=== PATIENT | female | born 1955 | race Caucasian/White ===

== ENCOUNTER 2016-09-26 16:37 | Emergency (ER) | payer MEDICAID, OTHER ==
[~2016-09-26] VITALS: Ht 170.2 cm; Wt 91.0 kg
[~2016-09-26 16:37] MED LIST: ALPR.5 PO; AMLO10 PO; ATOR10 PO; CARB0.5D16 EACH EYE; CYCL-36 PO; DETR2TAB PO; ECOT81TA2 PO; FIORIC PO; HCTZ25 PO; LEVA750T PO; LEVO.15 PO; METO25 PO; MOBI7.5T PO; Oxycodone/Acetaminophen PO; PRED10 PO; PROT40TA PO; SPIR25 PO; TAB-TAB PO; ULTR50TA PO; VALA500 PO; Z.0.OXYGENDME NC
[2016-09-26 16:54] VITALS: BP 135/85; PULSE 63; RESP 18; O2SAT 100
--- NOTE | 2016-09-26 17:16 | PD ---
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 Patient states that yesterday the bleeding was heavier but today it only happens when she bears down. She is concerned because previously she had some vaginal bleeding that she needed a transfusion and ended up having a embolization procedure to stop the bleeding. States she hasn't had any vaginal bleeding since she had that procedure in 2014. She denies any fever, chills, chest pain, shortness of breath, lightheadedness, dizziness, nausea, vomiting, diarrhea, constipation. PCP is Dr. Calhoun in the [place]. No other complaints. PFSH Past Medical History Asthma: No Blood Disorders: No Anxiety: No Depression: No Heart Rhythm Problems: No Cancer: No Cardiovascular Problems: Yes High Cholesterol: Yes Chemotherapy: No Chest Pain: No Congestive Heart Failure: No COPD: No Cerebrovascular Accident: Yes Diabetes: No Diminished Hearing: No Endocrine: No Genitourinary: No Implanted Vascular Access Dvce: Yes Musculoskeletal: Yes (LOWER BACK HERNIATED DISKS) Neurologic: No Psychiatric: No Reproductive: Yes (UTERINE FIBROIDS) Respiratory: Yes (o2 dependent) Radiation Therapy: No Sleep Apnea: No Thyroid Disease: No Tetanus Vaccination: > 5 Years Influenza Vaccination: Yes ?: Not Menopausal: Yes Past Surgical History Body Medical Devices: ENHANSED BREAST SURGERY Eye Surgery: Yes (L EYE) Hysterectomy: Yes Other Surgery: Yes (UTERINE FIBROIDS ) Social History Alcohol Use: No Tobacco Use: No Substance Use: Yes (MARIJUANA ) Allergies-Medications (Allergen,Severity, Reaction): Coded Allergies: Penicillin (Verified Allergy, Unknown, 09/26/16) Reported Meds & Prescriptions Reported Meds & Active Scripts Active Review of Systems Except as stated in HPI: all other systems reviewed are Neg Physical Exam Narrative GENERAL: Well-nourished and well-developed pleasant female patient in no acute distress who is nontoxic appearing. SKIN: Warm and dry. HEAD: Normocephalic and atraumatic. EYES: No injection, drainage, or hyphema noted. PERRLA. EOMI. ENT: No nasal drainage noted. Oropharynx is clear. NECK: Supple and the trachea is midline. CARDIOVASCULAR: Regular rate and rhythm. RESPIRATORY: Breath sounds are equal bilaterally with no accessory muscle use, wheezing, rhonchi, or crackles. GASTROINTESTINAL: Abdomen is soft, non-tender, and nondistended. GENITOURINARY: Normal external genitalia without lesions or erythema. Teaspoon amount of blood at top of vaginal canal just outside of cervix. No palpated masses or ulceration. No cervical motion tenderness. Uterus nontender and nonenlarged. Bilateral adnexa nontender without masses. Performed in the presence of April CARDENAS. MUSCULOSKELETAL: No obvious deformities, swelling, cyanosis, or ecchymosis is present throughout the upper and lower extremities. Patient has full range of motion without any signs of neurovascular compromise. NEUROLOGICAL: Awake, alert, and oriented. Normal speech and gait. Left sided facial droop secondary to prior CVA. Cranial nerves are grossly intact. Data Data Last Documented VS Vital Signs Date Time Temp Pulse Resp B/P Pulse Ox O2 Delivery O2 Flow Rate FiO2 09/26/16 16:54 63 18 135/85 100 Nasal Cannula 2 Orders Complete Blood Count With Diff (09/26/16 17:10) Comprehensive Metabolic Panel (09/26/16 17:10) Urinalysis - C+S If Indicated (09/26/16 17:10) Iv Access Insert/Monitor (09/26/16 17:10) Us Pelvis Comp W Dop Transvag (09/26/16 ) Labs Laboratory Tests Test 09/26/16 09/26/16 17:20 17:25 Urine Color YELLOW Urine Turbidity CLEAR Urine pH 7.0 Urine Specific [place] 1.006 Urine Protein NEG mg/dL Urine Glucose (UA) NEG mg/dL Urine Ketones NEG mg/dL Urine Occult Blood NEG Urine Nitrite NEG Urine Bilirubin NEG Urine Urobilinogen LESS THAN 2.0 MG/DL Urine Leukocyte Esterase NEG Urine RBC 1 /hpf Urine Squamous Epithelial <1 /hpf Cells Microscopic Urinalysis Comment CULT NOT INDICATED White Blood Count 5.0 TH/MM3 Red Blood Count 4.25 MIL/MM3 Hemoglobin 14.0 GM/DL Hematocrit 40.3 % Mean Corpuscular Volume 94.9 FL Mean Corpuscular Hemoglobin 32.9 PG Mean Corpuscular Hemoglobin 34.6 % Concent Red Cell Distribution Width 12.5 % Platelet Count 201 TH/MM3 Mean Platelet Volume 9.0 FL Neutrophils (%) (Auto) 67.2 % Lymphocytes (%) (Auto) 20.1 % Monocytes (%) (Auto) 7.2 % Eosinophils (%) (Auto) 4.6 % Basophils (%) (Auto) 0.9 % Neutrophils # (Auto) 3.3 TH/MM3 Lymphocytes # (Auto) 1.0 TH/MM3 Monocytes # (Auto) 0.4 TH/MM3 Eosinophils # (Auto) 0.2 TH/MM3 Basophils # (Auto) 0.0 TH/MM3 CBC Comment DIFF FINAL Differential Comment Sodium Level 136 MEQ/L Potassium Level 4.0 MEQ/L Chloride Level 97 MEQ/L Carbon Dioxide Level 34.5 MEQ/L Anion Gap 5 MEQ/L Blood Urea Nitrogen 13 MG/DL Creatinine 0.80 MG/DL Estimat Glomerular Filtration 73 ML/MIN Rate Random Glucose 193 MG/DL Calcium Level 9.0 MG/DL Total Bilirubin 1.2 MG/DL Aspartate Amino Transf 81 U/L (AST/SGOT) Alanine Aminotransferase 118 U/L (ALT/SGPT) Alkaline Phosphatase 88 U/L Total Protein 7.5 GM/DL Albumin 3.7 GM/DL [facility] Medical Decision Making Medical Screen Exam Complete: Yes Emergency Medical Condition: Yes Differential Diagnosis Uterine fibroids versus uterine cancer versus vaginitis versus other Narrative Course 61-year-old female presents to the emergency department for evaluation of vaginal bleeding for 2 days. Patient is afebrile, vital signs are stable. IV access is obtained, labs drawn and sent. Pelvic examination does show a small amount of blood in the vaginal vault but no other abnormalities identified. Pelvic ultrasound has been ordered and is pending. CBC is unremarkable. CMP shows slightly elevated LFTs but is otherwise unremarkable. Urinalysis is unremarkable. Pelvic ultrasound shows multiple findings in the uterus including a dominant mildly heterogeneous echotexture mass measuring 5.7 cm, calcified mass measuring 1.27 cm, multiple focal areas of myometrial calcification and endometrial fluid. Findings are suspicious for uterine fibroids but discussed with the patient that she will need follow-up with a certified pedorthotist in the office for tissue biopsy. Patient verbalizes understanding and is in agreement with treatment plan. Stable for discharge. Physician Communication Physician Communication I spoke with OB hospitalist Dr. Gomez regarding these ultrasound findings and he recommends outpatient follow-up with a certified pedorthotist for tissue biopsy. Diagnosis Primary Impression: Postmenopausal bleeding Additional Impression: Mass of uterus determined by ultrasound Referrals: [facility] Patient Instructions: General Instructions, Postmenopausal Bleeding (GEN) Additional Instructions: Follow-up with a certified pedorthotist in the office so that you can have a tissue biopsy. Return to the ED for any acute worsening of symptoms. Med/Other Pt SpecificInfo: No Change to Meds Disposition: 01 DISCHARGE HOME Condition: Stable Chioma Goel Sep 26, 2016 17:16
[2016-09-26 17:41] LABS: BLOOD, URINE NEG (NEG); GLUCOSE,URINE NEG (NEG); KETONE, URINE NEG (NEG); NITRITE,URINE NEG (NEG); SQUAMOUS EPITHELIAL CELL URINE <1 /hpf (0-5); URINE COLOR YELLOW (YELLW/STRAW)
[2016-09-26 17:42] LABS: COMMENT (UR) CULT NOT INDICATED; CULTURE IF INDICATED CULT NOT INDICATED
[2016-09-26 17:44] LABS: AUTOMATED NEUTROPHIL # 3.3 TH/MM3 (1.8-7.7); BASOPHIL % 0.9 % (0.0-2.0); EOSINOPHIL # 0.2 TH/MM3 (0-0.4); EOSINOPHIL % 4.6 % (0.0-4.0); HEMATOCRIT 40.3 % (35.0-46.0); HEMO FLAGS DIFF FINAL; LYMPH % 20.1 % (9.0-44.0); MEAN CELL VOLUME 94.9 FL (80.0-100.0); MEAN CORPUSCULAR HEMOGLOBIN 32.9 PG (27.0-34.0); MEAN CORPUSCULAR HGB CONC 34.6 % (32.0-36.0); MONO % 7.2 % (0.0-8.0); NEUT % 67.2 % (16.0-70.0); PLATELET COUNT 201 TH/MM3 (150-450); RED BLOOD COUNT 4.25 MIL/MM3 (4.00-5.30); RED CELL DISTRIBUTION WIDTH 12.5 % (11.6-17.2)
[2016-09-26 18:07] LABS: ANION GAP 5 MEQ/L (5-15); AST (GOT) 81 U/L (15-37); BICARBONATE 34.5 MEQ/L (21.0-32.0); BLOOD UREA NITROGEN 13 MG/DL (7-18); CHLORIDE 97 MEQ/L (98-107); GLOMERULAR FILTRATION RATE 73 ML/MIN (>89); SODIUM (NA) 136 MEQ/L (136-145)
[2016-09-26 18:12] LABS: ALKALINE PHOSPHATASE 88 U/L (45-117); ALT (GPT) 118 U/L (10-53); TOTAL BILIRUBIN ADULT 1.2 MG/DL (0.2-1.0)
--- NOTE | 2016-09-26 19:15 | RADRPT ---
EXAM DATE/TIME: 09/26/2016 17:53 [facility] COMPARISON: No previous studies available for comparison. INDICATIONS : Bleeding and pain post menopausal. MEDICAL HISTORY : Hypercholesterolemia. Cerebrovascular accident. O2 dependent. Uterine fibroids. Herniated disc lo wer back. Blood transfusion. SURGICAL HISTORY : Back surgery. Uterine fibroid embolization. ENCOUNTER: Initial ACUITY: 2 days PAIN SCORE: 8/10 LOCATION: Bilateral pelvis MEASUREMENTS: UTERUS: 10.6 x 8.5 x 7.4 cm ENDOMETRIAL STRIPE: 2 mm RIGHT OVARY: 2.5 x 2.0 x 1.7 cm LEFT OVARY: 3.0 x 2.3 x 2.0 cm FINDINGS: UTERUS: There are 2 masses which are mildly heterogeneous in echotexture, the largest is located in the poste rior body measuring 5.7 x 4.4 x 4.0 cm. The other is located more superior, hyperechogenic and dense ly shadowing measuring 1.2 x 1.1 x 0.6 cm. There are also several small echogenic and shadowing area s characteristic of calcifications. Endometrial stripe is normal in thickness, but there is evidence of some fluid in the upper endometrium. RIGHT OVARY: Ovary contains no mass or significant cystic lesion. LEFT OVARY: Ovary contains no mass or significant cystic lesion. MISCELLANEOUS: No free fluid in the cul-de-sac. CONCLUSION: Multiple findings in the uterus including a dominant mildly heterogeneous echotexture mass measuring 5.7 cm, a calcified mass measuring 1.2 cm, multiple focal areas of myometrial calcification, endometr ial fluid. Jonathan Amaro MD on September 26, 2016 at 19:07 Board Certified Radiologist. This report was verified electronically.
== END 2016-09-27 00:06 | disposition home or self-care (01) ==
LOC: NEPE 16:37
DX: N95.0 Postmenopausal bleeding (principal); N85.8 Other specified noninflammatory disorders of uterus; E78.00 Pure hypercholesterolemia, unspecified; F12.10 Cannabis abuse, uncomplicated; G89.29 Other chronic pain; Z86.73 Personal history of transient ischemic attack (TIA), and cerebral infarction without residual deficits
CPT/HCPCS: 76830; 76856; 80053; 81001; 85025; 93975

== ENCOUNTER 2017-02-08 17:55 | Observation (INO) | payer MEDICAID ==
[2017-02-08] VITALS (7 sets, daily range): BP systolic 131–143; BP diastolic 72–94; PULSE 63–78; RESP 16–20; TEMP 96.6–98.6; O2SAT 95–99
[~2017-02-08] VITALS: Ht 170.2 cm; Wt 87.0 kg
[2017-02-08] MEDS ORDERED: SODIUM CHLOR 0.9% 1000 ML INJ 1,000 ML IV ONE (18:08)
--- NOTE | 2017-02-08 18:16 | PD ---
HPI Chief Complaint: Stroke Alert Time Seen by Provider: 18:01 Travel History International Travel<30 days: No Contact w/Intl Traveler<30days: No Traveled to known affect area: No History of Present Illness HPI The patient is a 61-year-old female who presents emergency department for dysarthria, left upper extremity numbness and tingling, and left foot weakness that started approximately 5 PM today. The patient states she was doing "paperwork "when her symptoms started. 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 The patient does complain of "weakness, however, is unsure if this is acute today or is from her previous CVA, states " I don't pay attention to those things ". The patient did complain of some numbness and tingling in the left upper extremity that went down her left arms and up into the left jaw with she described initially as a pressure from the numbness and tingling, however, the pressure has resolved. She denies any chest pain or shortness of breath. The patient also states that her speech was different when her symptoms started. PFSH Past Medical History Hx Anticoagulant Therapy: No Asthma: No Blood Disorders: No Anxiety: No Depression: No Heart Rhythm Problems: No Cancer: No Cardiovascular Problems: Yes High Cholesterol: Yes Chemotherapy: No Chest Pain: No Congestive Heart Failure: No COPD: No Cerebrovascular Accident: Yes Diabetes: No Diminished Hearing: No Endocrine: No Genitourinary: No Implanted Vascular Access Dvce: Yes Musculoskeletal: Yes (LOWER BACK HERNIATED DISKS) Neurologic: No Psychiatric: No Reproductive: Yes (UTERINE FIBROIDS) Respiratory: Yes (o2 dependent) Radiation Therapy: No Sleep Apnea: No Thyroid Disease: No Menopausal: Yes Past Surgical History Body Medical Devices: ENHANSED BREAST SURGERY Eye Surgery: Yes (L EYE) Hysterectomy: Yes Other Surgery: Yes (UTERINE FIBROIDS ) Social History Alcohol Use: No Tobacco Use: No Substance Use: Yes (MARIJUANA ) Allergies-Medications (Allergen,Severity, Reaction): Coded Allergies: Penicillin (Verified Allergy, Unknown, 02/08/17) Reported Meds & Prescriptions Reported Meds & Active Scripts Active Reported Metoprolol Tartrate 50 Mg Tab 50 Mg PO DAILY Hydrochlorothiazide 25 Mg Tab 25 Mg PO DAILY Levothyroxine (Levothyroxine Sodium) 150 Mcg Tab 150 Mcg PO DAILY Review of Systems Except as stated in HPI: all other systems reviewed are Neg Eyes: No: Blurred Vision HENT: No: Headaches, Lightheadedness, Neck Pain Cardiovascular: No: Chest Pain or Discomfort Respiratory: No: Shortness of Breath Gastrointestinal: No: Nausea, Vomiting, Abdominal Pain Musculoskeletal: Positive: Weakness Neurologic: Positive: Weakness, Focal Abnormalities, Slurred Speech, Paresthesia, Sensory Disturbance, No: Headache, Change in Mentation Physical Exam Narrative GENERAL: Awake, alert, 61-year-old female appears her stated age and is in no acute respiratory distress. SKIN: Focused skin assessment warm/dry. HEAD: Atraumatic. Normocephalic. EYES: Pupils equal and round. Pupils are 4 mm bilateral and reactive. EOMs are intact. Patient is able to see fingers at a distance of 2 feet without difficulty. ENT: No nasal bleeding or discharge. Mucous membranes pink and moist. NECK: Trachea midline. No JVD. CARDIOVASCULAR: Regular rate and rhythm. No murmur appreciated. RESPIRATORY: No accessory muscle use. Clear to auscultation. Breath sounds equal bilaterally. GASTROINTESTINAL: Abdomen soft, non-tender, nondistended. No rebound tenderness. MUSCULOSKELETAL: No obvious deformities. No clubbing. No cyanosis. No edema. NEUROLOGICAL: Awake and alert. Patient has what appears to be Muñoz's palsy in the left, she is unable to raise her left eyebrow and she has left facial droop , states that is chronic. Decreased sensation in V2 and V3 distribution, states it's symmetric in the V3 distribution. No drift of the upper extremities , sensation is intact to the arms bilateral. Patient has mild drift of the legs bilateral which she states is secondary to pain in her back and being unable to hold her legs up. Sensation is symmetric on the legs, however, she has decreased plantar flexion with the left foot when compared to the right. The patient has no obvious dysarthria. Finger to nose is normal. [id number]-rf-guug is normal. PSYCHIATRIC: Appropriate mood and affect; insight and judgment normal. Data Data Last Documented VS Vital Signs Date Time Temp Pulse Resp B/P Pulse Ox O2 Delivery O2 Flow Rate FiO2 02/08/17 18:50 94 Nasal Cannula 2 02/08/17 18:32 73 18 02/08/17 18:32 98.1 141/74 02/08/17 18:10 21 Orders Diet Npo (02/08/17 Dinner) Activity Bed Rest (02/08/17 ) Electrocardiogram (02/08/17 ) I-Stat Creatinine (02/08/17 18:08) I-Stat Profile (02/08/17 18:08) Prothrombin Time / Inr (Pt) (02/08/17 18:08) Act Partial Throm Time (Ptt) (02/08/17 18:08) Complete Blood Count With Diff (02/08/17 18:08) Fibrinogen (02/08/17 18:08) Creatine Kinase (Cpk) (02/08/17 18:08) Troponin I (02/08/17 18:08) Ua Includes Microscopic (02/08/17 18:08) Drug Screen, Random Urine (02/08/17 18:08) Type And Screen (02/08/17 18:08) Ct Brain W/O Iv Contrast(Rout) (02/08/17 ) Chest, Single Ap (02/08/17 ) Cta Brain W Iv Contrast W 3d (02/08/17 18:08) Cta Neck W Iv Contrast W 3d (02/08/17 18:08) Beta Hcg (Quant/Titer) (02/08/17 18:08) Consult Neurology (02/08/17 ) Blood Glucose (02/08/17 18:08) Ecg Monitoring (02/08/17 18:08) Neuro Checks Q2HX12,Q4H (02/08/17 18:08) Nursing Bedside Swallow Assess .ONCE (02/08/17 18:08) Iv Access Insert/Monitor (02/08/17 18:08) NPO (02/08/17 18:08) Oximetry (02/08/17 18:08) Oxygen Administration (02/08/17 18:08) Sodium Chlor 0.9% 1000 Ml Inj (Ns 1000 M (02/08/17 18:08) Resp Oxygen Vladimir C Titrat 1-4 L (02/08/17 18:08) Cath For Specimen (02/08/17 18:08) Iohexol 350 Inj (Omnipaque 350 Inj) (02/08/17 18:28) Aspirin (Aspirin) (02/08/17 19:00) CKMB (02/08/17 18:10) CKMB% (02/08/17 18:10) Admit Order (Ed Use Only) (02/08/17 18:59) Labs Laboratory Tests Test 02/08/17 18:10 White Blood Count 6.1 TH/MM3 Red Blood Count 4.66 MIL/MM3 Hemoglobin 15.2 GM/DL Bedside Hemoglobin 15.6 G/DL Hematocrit 43.6 % Bedside Hematocrit 46.0 % Mean Corpuscular Volume 93.7 FL Mean Corpuscular Hemoglobin 32.7 PG Mean Corpuscular Hemoglobin 34.9 % Concent Red Cell Distribution Width 12.9 % Platelet Count 208 TH/MM3 Mean Platelet Volume 9.5 FL Neutrophils (%) (Auto) 62.4 % Lymphocytes (%) (Auto) 23.3 % Monocytes (%) (Auto) 7.0 % Eosinophils (%) (Auto) 6.6 % Basophils (%) (Auto) 0.7 % Neutrophils # (Auto) 3.8 TH/MM3 Lymphocytes # (Auto) 1.4 TH/MM3 Monocytes # (Auto) 0.4 TH/MM3 Eosinophils # (Auto) 0.4 TH/MM3 Basophils # (Auto) 0.0 TH/MM3 CBC Comment DIFF FINAL Differential Comment Prothrombin Time 10.7 SEC Prothromb Time International 1.0 RATIO Ratio Activated Partial 29.2 SEC Thromboplast Time Fibrinogen 330 mg/dL Bedside Sodium 139 MMOL/L Bedside Potassium 3.5 MMOL/L Bedside Chloride 95 MMOL/L Bedside Blood Urea Nitrogen 14 MG/DL Bedside Creatinine 0.7 MG/DL Bedside Glucose 198 MG/DL Hemoglobin A1c 7.3 % Total Creatine Kinase 269 U/L Creatine Kinase MB 7.3 NG/ML Creatine Kinase MB % 2.7 % Troponin I LESS THAN 0.02 NG/ML Human Chorionic Gonadotropin, LESS THAN 1 Quant MIU/ML Blood Type O POSITIVE Antibody Screen NEGATIVE Blood Bank Comment [facility] Medical Decision Making Medical Screen Exam Complete: Yes Emergency Medical Condition: Yes Medical Record Reviewed: Yes Interpretation(s) EKG reveals normal sinus rhythm with a rate of 73. Nonspecific T-wave changes. I-STAT reveals sodium low 139, potassium 3.5, chloride 95, BUN 14, glucose 198, hemoglobin 15.6, hematocrit 46%, rating 0.7. Laboratory Tests Test 02/08/17 18:10 White Blood Count 6.1 TH/MM3 Red Blood Count 4.66 MIL/MM3 Hemoglobin 15.2 GM/DL Bedside Hemoglobin 15.6 G/DL Hematocrit 43.6 % Bedside Hematocrit 46.0 % Mean Corpuscular Volume 93.7 FL Mean Corpuscular Hemoglobin 32.7 PG Mean Corpuscular Hemoglobin 34.9 % Concent Red Cell Distribution Width 12.9 % Platelet Count 208 TH/MM3 Mean Platelet Volume 9.5 FL Neutrophils (%) (Auto) 62.4 % Lymphocytes (%) (Auto) 23.3 % Monocytes (%) (Auto) 7.0 % Eosinophils (%) (Auto) 6.6 % Basophils (%) (Auto) 0.7 % Neutrophils # (Auto) 3.8 TH/MM3 Lymphocytes # (Auto) 1.4 TH/MM3 Monocytes # (Auto) 0.4 TH/MM3 Eosinophils # (Auto) 0.4 TH/MM3 Basophils # (Auto) 0.0 TH/MM3 CBC Comment DIFF FINAL Differential Comment Bedside Sodium 139 MMOL/L Bedside Potassium 3.5 MMOL/L Bedside Chloride 95 MMOL/L Bedside Blood Urea Nitrogen 14 MG/DL Bedside Creatinine 0.7 MG/DL Bedside Glucose 198 MG/DL CT the head reveals negative noncontrast head CT CTA head with 3-D reconstruction reveals negative CT angiogram. Intracranial circulation is widely patent. CTA carotids reveals tortuous carotid arteries without significant plaque or narrowing. Differential Diagnosis Differential diagnosis includes TIA, CVA, Muñoz's palsy, carotid dissection, multiple sclerosis, acute focal neurologic deficit. Narrative Course IV was established, labs are drawn and sent, and the patient was placed on cardiac telemetry monitoring and continuous pulse oximetry monitoring. The patient was called a stroke alert as her symptoms started at 5 PM. The patient' s stroke scale was 6, however, the patient has a history of Muñoz's palsy which gives her to point for partial facial paralysis which is chronic and one for decreased sensation of the left face which is chronic. The patient appears to have drift of the left lower extremity, however, also appears to have drift of the right lower extremity. The patient did have weakness of the left foot with plantar flexion. I had a discussion with the on-call neurologist, Dr. Meyer, after discussion was agreed the patient most likely would not receive TPA as she does have slightly atypical presentation with pressure/pain/numbness the left upper extremity and when to the jaw. I did review the patient's EMR, she had a negative MRI several years ago when she presented with similar symptoms. However, CT and CTA are negative, patient will receive aspirin and be admitted for further evaluation by neurology and possible MRI/MRA with echocardiogram and carotid ultrasound. The patient cannot recall her medications and was unable to Joel specifically what medications she takes. She did state her primary physician is Dr. Guadarrama. 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 The patient also had a previous positive nuclear medicine myocardial perfusion scan in 2014 and underwent cardiac catheterization by Dr. Perez, cardiac catheterization was unremarkable revealing false positive stress test. The patient could have atypical acute coronary syndrome, therefore, EKG and troponin/CPK were ordered. Patient's EKG is unremarkable except for some nonspecific T-wave changes. The initial CT the brain was negative, therefore, aspirin was ordered and the patient underwent CTA of the head and neck. CT the brain and CTA of the brain were negative. Physician Communication Physician Communication [facility] were paged for admission as the patient's primary physician is Dr. Guadarrama. I discussed the patient Dr. Tucker agrees with 23 hour observation. Diagnosis Primary Impression: Numbness and tingling of left arm and leg Additional Impression: Acute focal neurological deficit Admitting Information Admitting Physician Requests: Observation Condition: Stable Julio C Lam MD Feb 08, 2017 18:16
[2017-02-08] MEDS ORDERED: IOHEXOL 350 MG/ML 10 ML VIAL (for RAD DIAG) IV ONE (18:28)
--- NOTE | 2017-02-08 18:33 | RADRPT ---
EXAM DATE/TIME: 02/08/2017 18:19 [facility] COMPARISON: No previous studies available for comparison. INDICATIONS : Stroke alert; left arm numbness. RADIATION DOSE: 47.97 CTDIvol (mGy) This report was called by Dr Mejia to Dr Lam at 6: 29 PM MEDICAL HISTORY : Cerebrovascular disease. SURGICAL HISTORY : None. ENCOUNTER: Initial ACUITY: 1 day PAIN SCALE: 5 LOCATION: Head TECHNIQUE: Multiple contiguous axial images were obtained of the head. Using automated exposure control and adj ustment of the mA and/or kV according to patient size, radiation dose was kept as low as reasonably a chievable to obtain optimal diagnostic quality images. FINDINGS: CEREBRUM: The ventricles are normal for age. No evidence of midline shift, mass lesion, hemorrhage or acute in farction. No extra-axial fluid collections are seen. POSTERIOR FOSSA: The cerebellum and brainstem are intact. The 4th ventricle is midline. The cerebellopontine angle i s unremarkable. EXTRACRANIAL: The visualized portion of the orbits is intact. SKULL: The calvaria is intact. No evidence of skull fracture. CONCLUSION: Negative noncontrast head CT. David Mejia MD on February 08, 2017 at 18:29 Board Certified Radiologist. This report was verified electronically.
[2017-02-08 18:34] LABS: AUTOMATED NEUTROPHIL # 3.8 TH/MM3 (1.8-7.7); BASOPHIL % 0.7 % (0.0-2.0); EOSINOPHIL # 0.4 TH/MM3 (0-0.4); EOSINOPHIL % 6.6 % (0.0-4.0); HEMATOCRIT 43.6 % (35.0-46.0); HEMO FLAGS DIFF FINAL; LYMPH % 23.3 % (9.0-44.0); LYMPHOCYTE # 1.4 TH/MM3 (1.0-4.8); MEAN CELL VOLUME 93.7 FL (80.0-100.0); MEAN CORPUSCULAR HEMOGLOBIN 32.7 PG (27.0-34.0); MEAN CORPUSCULAR HGB CONC 34.9 % (32.0-36.0); NEUT % 62.4 % (16.0-70.0); PLATELET COUNT 208 TH/MM3 (150-450); RED BLOOD COUNT 4.66 MIL/MM3 (4.00-5.30); RED CELL DISTRIBUTION WIDTH 12.9 % (11.6-17.2); WHITE BLOOD COUNT 6.1 TH/MM3 (4.0-11.0)
[2017-02-08 18:39] LABS: I-STAT POTASSIUM 3.5 MMOL/L (3.5-4.9); I-STAT SODIUM 139 MMOL/L (138-146)
--- NOTE | 2017-02-08 18:41 | RADRPT ---
EXAM DATE/TIME: 02/08/2017 18:19 [facility] COMPARISON: CT ABDOMEN & PELVIS W/O CONTRAST, November 14, 2015, 21:02. INDICATIONS : Stroke alert; left arm numbness. IV CONTRAST: 80 cc Omnipaque 350 (iohexol) IV ; Cumulative dose for multiple exams. RADIATION DOSE: 28.78 CTDIvol (mGy) ; Combined studies MEDICAL HISTORY : Cerebrovascular disease. SURGICAL HISTORY : None. ENCOUNTER: Initial ACUITY: 1 day PAIN SCALE: 3/10 LOCATION: cranial TECHNIQUE: Volumetric scanning was performed using a multi-row detector CT scanner. The data was post processed with a variety of visualization algorithms including full volume maximum intensity projection, multi -planar sliding thin slab reformation, curved planar reformation, and surface rendering techniques. Using automated exposure control and adjustment of the mA and/or kV according to patient size, radiat ion dose was kept as low as reasonably achievable to obtain optimal diagnostic quality images. FINDINGS: Aortic arch: There is normal anatomic branching of the great vessels from the arch. There are just the great vesse ls are widely patent. Right carotid: The right common carotid, internal carotid and external carotid are widely patent. Left carotid: The left common carotid, internal carotid and external carotid are widely patent. Vertebral circulation: Both vertebral arteries are widely patent. Intracranial circulation: The anterior and middle cerebral circulation is widely patent bilaterally. No aneurysm is identified. The basilar is widely patent. The posterior cerebral circulation is widely patent. CONCLUSION: 1. Negative CT angiogram. Intracranial circulation is widely patent. Yomi Jaramillo MD on February 08, 2017 at 18:36 Board Certified Radiologist. This report was verified electronically.
[2017-02-08] MEDS ORDERED: METO50TA PO (18:46)
[2017-02-08] MEDS ORDERED: HYDR25TA5 PO (18:46)
[2017-02-08] MEDS ORDERED: LEVO150T7 PO (18:46)
[2017-02-08 18:49] LABS: PROTHROMBIN TIME - PATIENT 10.7 SEC (9.8-11.6)
[2017-02-08 18:52] LABS: BETA HCG QUANT LESS THAN 1 MIU/ML (0-5); CREATINE KINASE 269 U/L (26-192)
--- NOTE | 2017-02-08 18:58 | RADRPT ---
EXAM DATE/TIME: 02/08/2017 18:19 [facility] COMPARISON: CTA CAROTID ARTERIES W 3D RECON, August 28, 2014, 1:33. CTA BRAIN W 3D RECON, February 08, 2017, 18:19 . INDICATIONS : Stroke alert; left sided weakness. IV CONTRAST: 80 cc Omnipaque 350 (iohexol) IV ; Cumulative dose for multiple exams. RADIATION DOSE: 28.78 CTDIvol (mGy) ; Combined studies MEDICAL HISTORY : Cerebrovascular disease. SURGICAL HISTORY : None. ENCOUNTER: Initial ACUITY: 1 day PAIN SCALE: 3/10 LOCATION: neck Elevated flow velocities and ICA/CCA ratios have been found to correlate with increased degrees of vessel stenosis, calculated as percentage of diameter relative to a normal segment of distal ICA/CCA. TECHNIQUE: Volumetric scanning was performed using a multirow detector CT scanner. The data was post processed with a variety of visualization algorithms including full-volume maximum intensity projection, multip lanar sliding thin-slab reformation, curved-planar reformation, and surface-rendering techniques. Us ing automated exposure control and adjustment of the mA and/or kV according to patient size, radiatio n dose was kept as low as reasonably achievable to obtain optimal diagnostic quality images. FINDINGS: Study degraded by motion. AORTIC ARCH: There is a three-vessel origin of the great vessels from the aorta. No evidence of ostial narrowing. RIGHT CAROTID: Tortuous common and internal carotid portions. The common carotid artery is intact. The carotid bulb has a normal configuration without ulceration or narrowing. The internal carotid artery lumen is smoo th without stenosis. The external carotid artery is intact. LEFT CAROTID: Tortuous common and internal carotid portions. The common carotid artery is intact. The carotid bulb has a normal configuration without ulceration or narrowing. The internal carotid artery lumen is sm ooth without stenosis. The external carotid artery is intact. VERTEBRALS: The vertebral arteries have a symmetric diameter. No stenotic lesions are seen. Scattered thyroid nodules are present. CONCLUSION: Tortuous carotid arteries without significant plaque or narrowing. David Mejia MD on February 08, 2017 at 18:50
[2017-02-08] MEDS ORDERED: ASPIRIN 325 MG TAB PO ONE (19:00)
[2017-02-08 19:04] LABS: CKMB 7.3 NG/ML (0.5-3.6)
--- NOTE | 2017-02-08 19:08 | RADRPT ---
EXAM DATE/TIME: 02/08/2017 18:50 [facility] COMPARISON: CHEST SINGLE AP, September 01, 2014, 16:28. INDICATIONS : Stroke alert. MEDICAL HISTORY : Cerebrovascular disease. SURGICAL HISTORY : None. ENCOUNTER: Initial ACUITY: 1 day PAIN SCORE: 0/10 LOCATION: Bilateral chest FINDINGS: Trace atelectasis seen left lung base. No pleural effusion or pneumothorax. Heart size stable, upper limits of normal. CONCLUSION: Minimal left base atelectasis. No other evidence of acute cardiopulmonary disease. David Mejia MD on February 08, 2017 at 19:05 Board Certified Radiologist. This report was verified electronically.
[2017-02-08 19:17] LABS: APTT (PATIENT) 29.2 SEC (24.3-30.1)
[2017-02-08] MEDS ORDERED: ACETAMINOPHEN 325 MG TAB PO PRN (20:00)
[2017-02-08] MEDS ORDERED: ONDANSETRON HCL 4 MG/2 ML VIAL IVP PRN (20:00)
[2017-02-08] MEDS ORDERED: GLUCAGON 1 MG/ML VIAL OTHER PRN (20:00)
[2017-02-08] MEDS ORDERED: DEXTROSE 50% IN WATER 50 ML VIAL(D50) IV PUSH PRN (20:00)
[2017-02-08] MEDS ORDERED: SODIUM CHLORIDE 0.9% FLUSH 10 ML FLUSH IV FLUSH PRN (20:00)
[2017-02-08] MEDS ORDERED: NALOXONE HCL 0.4 MG/ML AMP IV PRN (20:00)
[2017-02-08] MEDS ORDERED: INSULIN ASPART SUPPLEMENTAL SCALE SQ SCH (21:00)
[2017-02-08] MEDS ORDERED: SODIUM CHLORIDE 0.9% FLUSH 10 ML FLUSH IV FLUSH SCH (21:00)
[2017-02-08] MEDS ORDERED: HEPARIN SODIUM - SQ 10,000 UNITS/ML VIAL SQ SCH (21:00)
[2017-02-08 21:04] LABS: AMPHETAMINE, URINE NEG (NEG); BARBITURATES, URINE NEG (NEG); COCAINE, URINE NEG (NEG)
[2017-02-08 22:12] LABS: HEMOGLOBIN A1a 1.2 %; HEMOGLOBIN Ao 82.8 %; HEMOGLOBIN F 0.9 %; HEMOGLOBIN LA1C 2.5 %
[2017-02-09 02:46] LABS: BLOOD, URINE NEG (NEG); GLUCOSE,URINE NEG (NEG); KETONE, URINE NEG (NEG); NITRITE,URINE NEG (NEG); SQUAMOUS EPITHELIAL CELL URINE <1 /hpf (0-5); URINE COLOR YELLOW (YELLW/STRAW)
[2017-02-09 03:44] VITALS: O2SAT 96
[2017-02-09 03:45] VITALS: BP 137/88; PULSE 72; RESP 20; TEMP 96.9; O2SAT 96
--- NOTE | 2017-02-09 07:14 | EKG ---
Date Performed: 02/08/2017 Time Performed: 18:10:14 PTAGE: 61 years EKG: Sinus rhythm MODERATE INTRAVENTRICULAR CONDUCTION DELAY NONSPECIFIC T-WAVE ABNORMALITY BORDERLINE ECG NO SIGNIFIC ANT CHANGE FROM PRIOR ELECTROCARDIOGRAM. PREVIOUS TRACING : 09/04/2014 09.52 DOCTOR: Jerrod Glover Interpretating Date/Time 02/09/2017 07:12:30
[2017-02-09] MEDS ORDERED: ASPIRIN 325 MG TAB PO SCH (09:00)
== END 2017-02-09 04:49 | disposition left against medical advice (07) ==
LOC: NEPE 17:55 → INTOOBSV 19:01 → NEDA 19:01 → NEPHCDU 20:48
PROVIDERS: ADMIT Specialist; ATTEND Specialist
DX: R29.818 Other symptoms and signs involving the nervous system (principal); G51.0 Bell's palsy; R20.0 Anesthesia of skin; R20.2 Paresthesia of skin
CPT/HCPCS: 70450; 70496; 70498; 71010; 80307; 81001; 82435; 82550; 82552; 82565; 82947; 82948; 83036; 84132; 84295; 84484; 84520; 84702; 85025; 85384; 85610; 85730; 86850; 86900; 86901; 93005; 99285; G0378; J7030; Q9967